=== PATIENT | male | born 1955 | race Caucasian/White ===

== ENCOUNTER 2016-08-31 22:04 | Emergency (ER) | payer OTHER ==
[2016-08-31 22:40] LABS: BASOPHIL# 0.1 X 10^3uL (0.0-0.1); BASOPHILS 0.8 % (0.0-2.0); EOSINOPHILS 3.2 % (0.0-6.0); EOSINOPHILS# 0.3 X 10^3uL (0.0-0.4); HEMATOCRIT 39.8 % (42.0-54.0); HEMOGLOBIN 13.8 g/dL (14.0-18.0); LYMPHOCYTES 20.5 % (20.0-40.0); LYMPHOCYTES# 1.6 X 10^3uL (0.8-3.8); MEAN CORPUS. HGB CONCENTRATION 34.6 g/dL (32.0-36.0); MEAN CORPUSCULAR HEMOGLOBIN 30.1 pg (29.0-35.0); MEAN PLATELET VOLUME 7.2 fL (7.4-10.4); MONOCYTES 9.8 % (2.0-10.0); MONOCYTES# 0.8 X 10^3uL (0.2-1.0); NEUTROPHILS 65.7 % (54.0-75.0); NEUTROPHILS# 5.1 X 10^3uL (2.6-6.7); RED BLOOD COUNT 4.58 X 10^6uL (4.20-6.10); RED CELL DISTRIBUTION WIDTH 12.5 % (11.5-14.5); WHITE BLOOD COUNT 7.9 X 10^3uL (3.9-10.7)
[2016-08-31 22:53] LABS: CALCIUM 8.8 mg/dL (8.4-10.2); POTASSIUM 3.4 mmol/L (3.5-5.1)
--- NOTE | 2016-09-01 01:08 | ER NURSING DOCUMENTATION ---
Nurse's Notes [facility] Name:Shivam Ruelas Age:61 yrs Sex:Male :1955 Arrival Date:08/31/2016 Time:22:04 Bed1 Private MD:Berta Armstrong Diagnosis:Postural Syncope;Dehydration Presentation: 08/31 22:07 Presenting complaint: Patient states: he has 2 episodes of syncope today. pt states he bw2 has been drinking scotch all day, denies drinking water. Transition of care: patient was not received from another setting of care. 22:07 Acuity: KEO 3 bw2 22:07 Method Of Arrival: EMS: 400 bw2 Triage Assessment: 22:10 General: Appears in no apparent distress, Behavior is appropriate for age. Pain: Denies bw2 pain. Historical: - Allergies: PENICILLINS; formaldehyde; - Tetanus: < 10 years. - Ebola Screening: : Patient negative for fever greater than or equal to 101.5 degrees Fahrenheit, and additional compatible Ebola Virus Disease symptoms. Patient denies exposure to infectious person. Patient denies travel to an Ebola-affected area in the 21 days before illness onset. No symptoms or risks identified at this time. . - Immunization history: Flu Vaccine < 1 year. - Social history: Smoking status: Patient uses tobacco products, current every day smoker. Screenin:11 Infectious Disease Risk None. Abuse screen: Denies threats or abuse. Nutritional bw2 screening: No deficits noted. Assessment: 22:11 See Triage Assessment done by same RN. bw2 Vital Signs: 22:10 BP 161 / 87; Pulse 93; Resp 19; Temp 97.5(O); Pulse Ox 99% 2 lpm ; Weight 90.72 kg; bw2 Height 6 ft. (182.88 cm); Pain 0/10; 09/01 00:01 BP 164 / 85; Pulse 100; Pulse Ox 94% on R/A; em1 00:46 BP 164 / 85; Pulse 82; Resp 16; Temp 97.4; Pulse Ox 96% on R/A; Pain 0/10; mk4 08/31 22:10 Body Mass Index 27.12 (90.72 kg, 182.88 cm) bw2 ED Course: 08/31 22:05 Patient arrived in ED. em2 22:05 Physician, No is Private Physician. em2 22:05 Froilan Kaur MD is Attending Physician. yfn 22:07 Emily Osman is Primary Nurse. bw2 22:08 Triage completed. bw2 22:11 Valuables Remains with patient Placed in gown. Side rails up X2. bw2 22:12 Inserted peripheral IV: 20 gauge in left hand. bw2 22:15 EKG done. (by ED staff). em1 22:40 Port Xray Completed. pm1 Administered Medications: Completed: NS 0.9% 1000 ml IV at bolus once Completed: NS 0.9% 1000 ml IV at bolus once Completed: NS 0.9% 1000 ml 1000 ml IV at 1000 bolus in right jugular once over 45 mins via [place] [facility] x1 22:12 Drug: NS 0.9% 1000 ml; Route: IV; Rate: bolus; Site: left hand; bw2 23:24 Follow up: IV Status: Completed infusion mk4 23:31 Follow up: IV Status: Completed infusion; IV Intake: 1000ml mk4 23:30 Drug: NS 0.9% 1000 ml; Volume: 1000 ml; Route: IV; Rate: bolus; Infused Over: 45 mins; mk4 Site: left antecubital; Delivery: [place] [facility]ing; 23:40 Drug: NS 0.9% 1000 ml; Volume: 1000 ml; Route: IV; Rate: 1000 bolus; Infused Over: 45 mk4 mins; Site: right jugular; Delivery: [place] [facility]; 09/01 01:04 Follow up: Response: No adverse reaction mk4 Intake: 08/31 23:31 IV: 1000ml; Total: 1000ml. 4 Outcome: 09/01 00:08 Discharge ordered by . 00:46 Discharged to home 4 00:46 Condition: good 00:46 Discharge Assessment: Patient awake, alert and oriented x 3. No cognitive and/or functional deficits noted. Patient verbalized understanding of disposition instructions. 00:46 Discharge instructions given to patient, Instructed on discharge instructions, follow up and referral plans. Demonstrated understanding of instructions. 00:46 IV D/Jose Miguel 4 01:07 Patient left the ED. 4 12:20 Discharge F/U Call: Unable to reach: no answer lp Signatures: Kathy Corral RN RN Froilan Jaquez MD MD jm McBride, Philisha pm1 MagaliYAMAPtech, VanessaMedaPhortech em1 Nelsy-reg, Vanessa-reg em2 Nicolle Tabor mk4 Dawson, Emily bw2
--- NOTE | 2016-09-01 01:08 | ER PHYSICIAN DOCUMENTATION ---
Physician Documentation [facility] Name:Shivam Ruelas Age:61 yrs Sex:Male :1955 Arrival Date:08/31/2016 Time:22:04 Bed1 Private MD:Physician, No ED Froilan Lim Disposition: 09/01/16 00:08 Discharged to Home/Self Care. Impression: Postural Syncope, Dehydration. - Condition is Good. - Discharge Instructions: DEHYDRATION (6y-Adult). - Medical Reconciliation form form. - Follow up: Private Physician; When: As needed; Reason: Continuance of care. - Problem is new. - Symptoms have improved. Historical: - Allergies: PENICILLINS; formaldehyde; - Tetanus: < 10 years. - Ebola Screening: : Patient negative for fever greater than or equal to 101.5 degrees Fahrenheit, and additional compatible Ebola Virus Disease symptoms. Patient denies exposure to infectious person. Patient denies travel to an Ebola-affected area in the 21 days before illness onset. No symptoms or risks identified at this time. . - Immunization history: Flu Vaccine < 1 year. - Social history: Smoking status: Patient uses tobacco products, current every day smoker. Vital Signs: 08/31 22:10 BP 161 / 87; Pulse 93; Resp 19; Temp 97.5(O); Pulse Ox 99% 2 lpm ; Weight 90.72 kg; bw2 Height 6 ft. (182.88 cm); Pain 0/10; 09/01 00:01 BP 164 / 85; Pulse 100; Pulse Ox 94% on R/A; em1 00:46 BP 164 / 85; Pulse 82; Resp 16; Temp 97.4; Pulse Ox 96% on R/A; Pain 0/10; mk4 08/31 22:10 Body Mass Index 27.12 (90.72 kg, 182.88 cm) bw2 MDM: 08/31 22:05 Patient medically screened. 08/31 22:44 Order name: CBC AUTO DIF, MDIF/RMOR IF IND; Complete Time: 23:26 EDHI 08/31 22:54 Order name: BASIC METABOLIC PANEL; Complete Time: 23:26 EDMS 09/02 16:58 Order name: CHEST; [place] [address] [facility] 08/31 22:05 Order name: 12-lead EKG; Complete Time: 01:05 08/31 22:05 Order name: Pulse Ox Continuous; Complete Time: 22:12 08/31 22:05 Order name: Continuous Cardiac Monitoring; Complete Time: 22:12 08/31 22:05 Order name: Oxygen; Complete Time: 22:12 Dispensed Medications: Completed: NS 0.9% 1000 ml IV at bolus once Completed: NS 0.9% 1000 ml IV at bolus once Completed: NS 0.9% 1000 ml 1000 ml IV at 1000 bolus in right jugular once over 45 mins via [place] [facility] x1 22:12 Drug: NS 0.9% 1000 ml; Route: IV; Rate: bolus; Site: left hand; bw2 23:24 Follow up: IV Status: Completed infusion mk4 23:31 Follow up: IV Status: Completed infusion; IV Intake: 1000ml mk4 23:30 Drug: NS 0.9% 1000 ml; Volume: 1000 ml; Route: IV; Rate: bolus; Infused Over: 45 mins; mk4 Site: left antecubital; Delivery: [place] [facility]; 23:40 Drug: NS 0.9% 1000 ml; Volume: 1000 ml; Route: IV; Rate: 1000 bolus; Infused Over: 45 mk4 mins; Site: right jugular; Delivery: [place] [facility]; 09/01 01:04 Follow up: Response: No adverse reaction 4 Signatures: Froilan Kaur MD MD jm King, Melody 4 Emily Osman 2
--- NOTE | 2016-09-02 15:24 | RADIOLOGY REPORT ---
A limited single portable view of the chest demonstrates the heart and vessels to be unremarkable. Benign calcified granuloma is seen in the right costophrenic angle. The lung kinsey are otherwise clear. IMPRESSION: Evidence of old granulomatous disease. No acute cardiopulmonary abnormality is identified. MTDD
== END 2016-09-01 01:08 | disposition home or self-care (01) ==
LOC: ER 22:04
DX: R55 Syncope and collapse (principal); E86.0 Dehydration; R42 Dizziness and giddiness; R53.83 Other fatigue; R53.1 Weakness; Z99.89 Dependence on other enabling machines and devices; Z74.3 Need for continuous supervision
CPT/HCPCS: 36415; 71010; 80048; 85025; 93005; 96360; 99284; A0425; A0429